=== PATIENT | female | born 1950 | race Caucasian/White ===

== ENCOUNTER 2016-07-28 12:01 | Outpatient (CLI) | payer BC ==
[~2016-07-28] VITALS: Ht 154.9 cm; Wt 47.6 kg
[~2016-07-28 12:01] MED LIST: ASP81TEC PO; AZTH250C PO; CA C1TAB75 PO; ESTR42.52 VG; FLC150T PO; HCTZ12.5T PO; HYDR-757 PO; HYDR25TA4 PO; IBUP-30 PO; LEVO750T6 PO; LOSA25TA5 PO; ONDA-42 SL; OXYM30SP NS; PS30T PO
--- OUTSIDE RECORDS SUMMARY | 2016-07-28 12:04 | XMS REPORT | Continuity of Care Document ---
Author Author [facility] Organization [facility] Address Unknown Phone Unavailable Care Team Providers Care Environmental Change Analyst Name Role Phone KERRY POOL MD PCP Insurance Providers Payer Name Policy Number Subscriber Name Relationship [facility] [id number] Jenni Pedersen 18 Self / Same As Patient Advance Directives Directive Response Recorded Date/Time Advance Directives No 03/29/14 5:54pm Health Care Power of Station Mechanic Helper No 03/29/14 5:54pm Organ Donor Yes 03/29/14 5:54pm Resuscitation Status Full Code 03/29/14 5:54pm Resuscitation Status Full Code 03/29/14 5:57pm Chief Complaint and Reason for Visit Chief Complaint R PNEUMONIA,SEPSIS,FAILED OP ANTIBIOTICS Reason for Visit Pneumonia Problems Medical Problems Problem Onset Date Status Pneumonia 04/02/2014 Active Medications Medication Dose Route Sig Days/Qty Instructions Order Date Discontinued Date Status Aspirin 81 Mg PO DAILY 02/23/13 03/29/14 Discontinued Estradiol 1 Gm VG 3 TIMES WEEKLY 02/23/13 Active Losartan Potassium 25 Mg PO DAILY 02/23/13 Active Hydrochlorothiazide 12.5 Mg PO DAILY 02/23/13 03/30/14 Discontinued Azithromycin PO DIRECTED TAKE 2 TABLETS DAY 1 THEN TAKE 1 TABLET DAILY FOR 4 DAYS 03/29/14 04/02/14 Discontinued Fluconazole 150 Mg PO DIRECTED 2 Qty 03/30/14 03/30/14 Discontinued Hydrochlorothiazide 6.25 Mg PO DAILY TAKES 1/4 (25MG) TABLET DAILY 12/06 Active Pseudoephedrine HCl 60 Mg PO EVERY 4-6 HOURS PRN CONGESTION 03/30/14 04/02/14 Discontinued Ibuprofen 200 Mg PO THREE TIMES A DAY PRN PAIN 03/30/14 Active Ca Carbonate/Vitamin D3/Vit K 1 Tab PO DAILY 03/30/14 Active Oxymetazoline Hcl (Afrin Nasal [place]) 2-3 [place] NS PER PACKAGE INSTR PRN CONGESTION 03/30/14 Active Levofloxacin 750 Mg PO DAILY 6 Days 04/02/14 Active Social History Social History Problem Response Recorded Date/Time Alcohol Use Denies Use 03/29/2014 5:56pm Recreational Drug Use No 03/29/2014 5:56pm Recent Foreign Travel No 03/29/2014 5:56pm Recent Infectious Disease Exposure No 03/29/2014 5:56pm Hospitalization with Isolation Denies 04/02/2014 11:37am Smoking Status Never a Smoker 03/29/2014 6:02pm Query Response Start Date Stop Date Smoking Status Never a Smoker Hospital Discharge Instructions No hospital discharge instructions. Plan of Care Discharge Date 04/02/14 10:50am Disposition 30 STILL A PATIENT Instructions/Education Provided Bacterial Pneumonia (DC) Prescriptions See Medications Section Follow-up Orders Chest 1 View, Ap/Pa Referrals KERRY POOL MD (Unspecified) 04/16/14 Address: [address] [place] [address], [address] [place] [phone] Care Plan and Goals Repeat CXR in 2 weeks then f/u with Dr Pool after CXR. May use OTC Mucinex (without D) if needed for congestion. Functional Status Query Response Date Recorded Patient Orientation Person Place Time Situation April 02, 2014 11:37am Comprehension Ability Understands Concepts April 02, 2014 7:59am Allergies, Adverse Reactions, Alerts Allergen Type Severity Reaction Status Last Updated No Known Drug Allergies Active 03/29/14 Immunizations Name Given Type Date of Pneumonia Vaccine 03/29/08 Historical Date of Influenza Vaccine 03/27/12 Historical Hepatitis A No Historical Hepatitis B No Historical Tetanus Booster (TDap) More than 5yrs Historical Vital Signs Acute Vital Signs Vital Response Date/Time Temperature (Fahrenheit) 97.1 degrees F (97.6 - 99.5) Temperature (Calculated Celsius) 36.41364 degrees C (36.4 - 37.5) Temperature Source Tympanic Pulse Rate (adult) 82 bpm (60 - 90) Respiratory Rate 20 bpm (12 - 24) O2 Sat by Pulse Oximetry 100 % (88 - 100) Blood Pressure 133/76 mm Hg Pain Pain Intensity 0 Height (Feet) 5 feet Height (Inches) 1.00 inches Height (Calculated Centimeters) 154.436940 cm Weight (Pounds) 112 pounds Weight (Calculated Grams) 21814.346 gm Weight (Calculated Kilograms) 50.118907 kilograms Calculated BMI 21.16 Results No known relevant diagnostic tests, laboratory data and/or discharge summary. Procedures Procedure Status Date Provider(s) Tracing only of electrocardiogram completed 04/01/14 ZORAIDA MELTON MD Color Doppler echocardiography completed 04/01/14 ZORAIDA MELTON MD Encounters Encounter Location Date/Time Discharged Inpatient [facility] 03/29/14 4:39pm Recent Diagnosis Pneumonia
[2016-07-28] MEDS ORDERED: ASPI-586 PO (12:14)
[2016-07-28] MEDS ORDERED: LEVO50TA6 PO (12:14)
[2016-07-29] MEDS ORDERED: HYDR-3730 PO (14:13)
== END 2016-07-28 12:22 ==
LOC: PREOP 12:01
PROVIDERS: ATTEND Orthopaedic Surgery
DX: Z01.818 Encounter for other preprocedural examination (principal); S52.122A Displaced fracture of head of left radius, initial encounter for closed fracture; V00.138A Other skateboard accident, initial encounter; Y92.017 Garden or yard in single-family (private) house as the place of occurrence of the external cause; Y99.8 Other external cause status

== ENCOUNTER 2016-07-29 08:01 | Day surgery (SDC) | payer BC ==
[~2016-07-29] VITALS: Ht 154.9 cm; Wt 47.6 kg
[~2016-07-29 08:01] MED LIST changes: +ASPI-586 PO; +LEVO50TA6 PO
--- OUTSIDE RECORDS SUMMARY | 2016-07-29 08:06 | XMS REPORT | Continuity of Care Document ---
Author Author [facility] Organization [facility] Address Unknown Phone Unavailable Care Team Providers Care Account Support Manager Name Role Phone CHINYERE WILLIAMSON DO PCP Insurance Providers Payer Name Policy Number Subscriber Name Relationship [facility] [id number] Jenni Pedersen 18 Self / Same As Patient Advance Directives Directive Response Recorded Date/Time Advance Directives No 07/28/16 12:10pm Health Care Power of Tobacco Blender No 07/28/16 12:10pm Organ Donor Yes 07/28/16 12:10pm Resuscitation Status Full Code 07/28/16 12:10pm Problems Active Problems Medical Problem Onset Date Status Concussion without loss of consciousness Unknown Acute Concussion without loss of consciousness Unknown Acute Contusion of face Unknown Acute Failure of outpatient treatment Unknown Acute Fall on same level from slipping, tripping or stumbling Unknown Acute Fever Unknown Acute Fracture of radial head, left, closed Unknown Acute Hyponatremia Unknown Acute Pneumonia 04/02/2014 Acute Pneumonia Unknown Acute Sepsis Unknown Acute Medications Current Home Medications Medication Dose Units Route Directions Days/Qty Instructions Start Date Estradiol 42.5 Gm 1 Gm Vaginal 2 Times Per Week 02/23/13 Losartan Potassium 25 Mg 25 Mg Oral Daily 02/23/13 Hydrochlorothiazide 25 Mg 6.25 Mg Oral Daily TAKES 1/4 (25MG) TABLET DAILY 03/30/14 Ibuprofen 200 Mg 200 Mg Oral Three Times A Day as needed for Pain Ca Carbonate/Vitamin D3/Vit K 1 Each 1 Tab Oral Daily 03/30/14 Ondansetron Hcl 4 Mg 4 Mg Sublingual Every 4HRS as needed for Nausea/ Vomiting 10 FOR NAUSEA AND VOMITING 05/05/14 Hydrocodone/Acetaminophen 1 Each 1 Each Oral Every 4HRS as needed for Pain 20 07/25/16 Aspirin 81 Mg 81 Mg Oral Daily 07/28/16 Levothyroxine Sodium 50 Mcg 50 Mcg Oral Daily 07/28/16 Past Home Medications Medication Directions Ordered Status Aspirin 81 Mg Tabec, 81 Mg Oral Daily 02/23/13 Discontinued Hydrochlorothiazide 12.5 Mg Cap, 12.5 Mg Oral Daily 02/23/13 Discontinued Azithromycin 250 Mg Tablet, Oral As Directed 03/29/14 Discontinued Fluconazole 150 Mg Tablet, 150 Mg Oral As Directed 03/30/14 Discontinued Pseudoephedrine Hcl 30 Mg Tab, 60 Mg Oral Every 4-6 Hours as needed for Congestion 03/30/14 Discontinued Oxymetazoline Hcl (Afrin Nasal [place]) 15 Ml [place], 2-3 [place] Nasal Per Package Instr as needed for Congestion 03/30/14 Discontinued Social History Social History Problem Response Recorded Date/Time Alcohol Use Denies Use 05/05/2014 10:07am Recreational Drug Use No 05/05/2014 10:07am Recent Foreign Travel No 05/05/2014 10:07am Recent Infectious Disease Exposure No 05/05/2014 10:07am Hospitalization with Isolation Denies 05/05/2014 10:07am Smoking Status Never a Smoker 07/28/2016 12:10pm Recent Hopitalizations No 07/28/2016 12:10pm Hospitalization with Isolation Denies 05/05/2014 10:07am Query Response Start Date Stop Date Smoking Status Never a Smoker Hospital Discharge Instructions No hospital discharge instructions. Plan of Care Discharge Date 07/28/16 12:22pm Prescriptions See Medication Section Functional Status No functional status results. Allergies, Adverse Reactions, Alerts No known allergies. Immunizations No immunization records. Vital Signs Acute Vital Signs Vital Response Date/Time Temperature (Fahrenheit) 96.7 degrees F (97.6 - 99.5) 07/25/2016 6:26pm Temperature (Calculated Celsius) 35.38249 degrees C (36.4 - 37.5) 07/25/2016 6:26pm Temperature Source Tympanic 07/25/2016 6:26pm Pulse Rate (adult) 81 bpm (60 - 90) 07/25/2016 6:26pm Respiratory Rate 16 bpm (12 - 24) 07/25/2016 6:26pm O2 Sat by Pulse Oximetry 99 % (88 - 100) 07/25/2016 6:26pm Blood Pressure 142/81 mm Hg 07/25/2016 6:26pm Blood Pressure Mean 101 mm Hg 07/25/2016 4:59pm Pain Numeric Pain Scale 3 07/25/2016 6:26pm Height (Feet) 5 feet 07/28/2016 12:07pm Height (Inches) 1.00 inches 07/28/2016 12:07pm Height (Calculated Centimeters) 154.521962 cm 07/28/2016 12:07pm Weight (Pounds) 105 pounds 07/28/2016 12:07pm Weight (Ounces) 0.0 oz 07/28/2016 12:07pm Weight (Calculated Grams) 39970.20 gm 07/28/2016 12:07pm Weight (Calculated Kilograms) 47.168500 kilograms 07/28/2016 12:07pm Calculated BMI 19.8 07/28/2016 12:07pm Capillary Refill Capillary Refill Less Than 3 Seconds 07/25/2016 4:59pm Results No known relevant diagnostic tests, laboratory data and/or discharge summary. Procedures No known history of procedures. Encounters Encounter Location Arrival/Admit Date Discharge/Depart Date Attending Provider Departed Clinic [facility] 07/28/16 12:01pm 07/28/16 12: 22pm ANGE MCKEON MD Departed Emergency Room [facility] 07/25/16 4:29pm 07/25 6:27pm ALICIA WALTERS APRN
--- OUTSIDE RECORDS SUMMARY | 2016-07-29 08:06 | XMS REPORT | Continuity of Care Document ---
Author Author [facility] Organization [facility] Address Unknown Phone Unavailable Care Team Providers Care Staff Development Educator Name Role Phone CHINYERE WILLIAMSON DO PCP Insurance Providers Payer Name Policy Number Subscriber Name Relationship [facility] [id number] Jenni Pedersen 19 Self / Same As Patient Advance Directives Directive Response Recorded Date/Time Advance Directives No 07/28/16 12:10pm Health Care Power of Insulation Helper No 07/28/16 12:10pm Organ Donor Yes 07/28/16 [...] Congestion 03/30/14 Discontinued Oxymetazoline Hcl (Afrin Nasal [place]) 15 Ml [place], 2-3 [place] Nasal Per Package Instr as needed for [...] - 99.5) 07/25/2016 6:26pm Temperature (Calculated Celsius) 35.13895 degrees C (36.4 - 37.5) 07/25/2016 6:26pm [...] 1.00 inches 07/28/2016 12:07pm Height (Calculated Centimeters) 154.183531 cm 07/28/2016 12:07pm Weight (Pounds) 105 pounds 07/28/2016 12:07pm Weight (Ounces) 0.0 oz 07/28/2016 12:07pm Weight (Calculated Grams) 08688.20 gm 07/28/2016 12:07pm Weight (Calculated Kilograms) 47.037751 kilograms 07/28/2016 12:07pm Calculated BMI 19.8 07/28/2016 12:07pm Capillary Refill Capillary Refill Less Than 3 Seconds 07/25/2016 4:59pm Results No known relevant diagnostic tests, laboratory data and/or discharge summary. Procedures No known history of procedures. Encounters Encounter Location Arrival/Admit Date Discharge/Depart Date Attending Provider Departed Clinic [facility] 07/28/16 12:01pm 07/28/16 12: 22pm ANGE MCKEON MD Departed Emergency Room [facility] 07/25/16 4:29pm 07/25 6:27pm ALICIA WALTERS APRN
[2016-07-29 08:08] VITALS: BP 119/73
[2016-07-29] MEDS ORDERED: LIDOCAINE 1% 10 MG/ML 0.2 ML SYR (FOR IV START) ONE (08:08)
[2016-07-29] MEDS ORDERED: NORMAL SALINE (BAXTER MINI) 50 ML IV ONE (08:09)
[2016-07-29] MEDS ORDERED: ceFAZolin 1,000 MG (ANCEF) VIAL ONE (08:09)
[2016-07-29] MEDS ORDERED: FAMOTIDINE 20MG/2ML IV (PEPCID) ONE (08:38)
[2016-07-29] MEDS ORDERED: SCOPOLAMINE 1.5 MG (TRANSDERM-SCOP) PATCH ONE (08:38)
[2016-07-29] MEDS ORDERED: ONDANSETRON 4 MG/2 ML (SDV) Z0FRAN ONE ×2 (08:38→09:14)
--- NOTE | 2016-07-29 08:42 | HISTORY AND PHYSICAL ---
DICTATING PHYSICIAN: Dr. Abreu DATE OF ADMISSION: 07/29/2016 Outpatient surgery admission for open reduction and internal fixation of her left radial head. HISTORY: The patient is a 66-year-old, [id number] female who fell while skateboarding Wednesday evening. She is found to have a closed displaced left radial head fracture. She denies wrist pain. She denies paresthesias. She reports no prior history of elbow problems. She reports that she was unable to rotate her forearm following the injury. Due to the displaced nature of the fracture it was recommended that the patient undergo operative fixation. REVIEW OF SYSTEMS: No chest pain, no shortness of breath. No dysuria. PAST MEDICAL HISTORY: Significant for hypertension and hypothyroidism. PAST SURGICAL HISTORY: 1. Hysterectomy. 2. Lipoma excision. 3. . SOCIAL HISTORY: The patient denies alcohol, tobacco use. PRIMARY CARE PROVIDER: Dr. Conroy. FAMILY HISTORY: Noncontributory. MEDICATIONS: 1. Aspirin. 2. Hydrochlorothiazide. 3. Cozaar. 4. Levothyroxine. 5. Estrace. ALLERGIES: NICKEL PHYSICAL EXAMINATION: The patient is well-developed, well-nourished, in no acute distress. HEENT: Normocephalic, atraumatic. Pupils are equal, and reactive to light, oropharynx is clear. NECK: Supple with no lymphadenopathy. LUNGS: Clear to auscultation bilaterally. HEART: Regular rate and rhythm. ABDOMEN: Soft, nontender, nondistended. EXTREMITY EXAM: The left elbow demonstrates mild edema. She is tender over her fracture site. She has pain with attempted supination and pronation of the forearm. Sensation is intact distally in the radial, ulnar and median distribution. She has intact MCP extension, finger abduction, thumb IP flexion and extension. She is nontender over her distal radial, ulnar joint. IMPRESSION: Displaced left radial head fracture. PLAN: Open reduction and internal fixation of the left radial head. The risks, benefits, options, ramifications and recovery were discussed at length with the patient and her . They understand and wish to proceed. Job ID: [id number] Dictated Date: 07/28/2016 10:40:00 Financial Operations Clerk Date: 07/28/2016 10:54:52/key
[2016-07-29] MEDS ORDERED: ceFAZolin 1 GM/NS 50 ML IVPB IV ONE ×2 (08:45)
--- NOTE | 2016-07-29 08:54 | Progress Note-Pre Operative ---
Pre-Operative Progress Note H&P Reviewed The H&P was reviewed, patient examined and no changes noted. Date H&P Reviewed: Jul 29, 2016 Time H&P Reviewed: 08:53 Pre-Operative Diagnosis: closed, displaced left radial head fracture ANGE MCKEON MD Jul 29, 2016 08:54
--- NOTE | 2016-07-29 08:55 | Progress Note-Post Operative ---
Post-Operative Progess Note Transition Teacher Fuentes Bailey Pre-Operative Diagnosis closed, displaced left radial head fracture Post-Operative Diagnosis closed, displaced left radial head fracture Post-Op Procedure Note Date of Procedure: Jul 29, 2016 Name of Procedure: left radial head fracture fragment excision Anesthesia Type GETA Estimated blood loss (mL): minimal Packing: none Specimen(s) collected none ANGE MCKEON MD Jul 29, 2016 08:55
[2016-07-29] MEDS: LACTATED RINGERS 1,000 ML IV SCH ×2 (09:00→10:20)
[2016-07-29] MEDS ORDERED: ROCURONIUM 50 MG/5 ML (ZEMURON) VIAL IV ONE (09:14)
[2016-07-29] MEDS ORDERED: MIDAZOLAM 2 MG/2 ML (VERSED) VIAL ONE (09:14)
[2016-07-29] MEDS ORDERED: LIDOCAINE PF 2% 10 ML (XYLOCAINE) AMP ONE (09:14)
[2016-07-29] MEDS ORDERED: LACTATED RINGERS 1,000 ML IV ONE ×2 (09:14→11:10)
[2016-07-29] MEDS ORDERED: proPOfol 200 MG/20 ML (DIPRIVAN) VIAL IV ONE (09:14)
[2016-07-29] MEDS ORDERED: fentaNYL INJECTION 100 MCG/2 ML AMP ONE (09:14)
[2016-07-29] MEDS ORDERED: LIDOCAINE JELLY 2% (XYLOCAINE) 5 ML TUBE ONE (09:14)
[2016-07-29] MEDS ORDERED: HYDROcodone/APAP 7.5 MG/325 MG (LORTAB, LORCET PLUS) TABLET PO PRN (09:15)
[2016-07-29] MEDS ORDERED: morphine INJ 10 MG/ML 1ML (SYR OR VIAL) ONE (10:06)
[2016-07-29] MEDS ORDERED: SEVOFLURANE (ULTANE) 15 ML INHAL SOLN ONE ×8 (10:13→11:34)
[2016-07-29] MEDS ORDERED: BUPIVACAINE 0.25% 30 ML (SENSORCAINE) VIAL ONE (11:20)
[2016-07-29] MEDS ORDERED: ONDANSETRON 4 MG/2 ML (SDV) Z0FRAN IVP PRN (12:00)
[2016-07-29] MEDS ORDERED: MEPERIDINE (DEMEROL) INJ 50 MG/ML IVP PRN (12:00)
[2016-07-29] MEDS: morphine INJ 10 MG/ML 1ML (SYR OR VIAL) IVP PRN ×3 (12:11→12:26)
[2016-07-29 12:50] VITALS: BP 126/75
[2016-07-29 13:25] VITALS: BP 108/70
--- NOTE | 2016-07-29 14:05 | OPERATIVE REPORT ---
PROCEDURE PHYSICIAN: ANGE MCKEON DATE OF PROCEDURE: 07/29/2016 PREOPERATIVE DIAGNOSIS: Displaced radial head fracture. POSTOPERATIVE DIAGNOSIS: Displaced radial head fracture. PROCEDURE: Excision of left radial head fracture fragment. SURGEON: Brady TECHNICAL SPEC: Fuentes Bailey. ANESTHESIA: General endotracheal by Fuentes Baires CRNA. TOURNIQUET TIME: 71 minutes at 250 mmHg. ESTIMATED BLOOD LOSS: Minimal. DRAINS: None. COMPLICATIONS: None. POSTOPERATIVE PLAN: Immobilization for 2 weeks. DISPOSITION: The patient was transported to the recovery room, awake, in stable condition. STATEMENT OF MEDICAL NECESSITY: The patient is a 66-year-old, [id number] female who sustained a left closed displaced radial head fracture. There was no significant displacement of the fracture fragment and patient reported difficulty with supination and pronation. Because of this it was recommended the patient undergo operative fixation. PROCEDURE: After risks and benefits of the procedure were discussed and questions were answered, informed consent was signed and placed on the chart. The operative site was confirmed in the preoperative holding area and initialed by the surgeon. The patient was then transported to the operating room and after adequate levels of general endotracheal anesthetic were obtained, a timeout was called confirming the operative site. The left upper extremity was then prepped and draped in the usual sterile fashion. With the arm elevated, the tourniquet was inflated to 250 mmHg. A standard posterior lateral approach was utilized. The plane between the anconeus the extensor carpi ulnaris was developed exposing the joint capsule. The capsule had been disrupted from the fracture superiorly. This was then incised longitudinally staying anterior to the lateral collateral ligament complex. The joint was opened and a fracture was found to be on the ulnar aspect of the radial head. This involved less than 10% of the articular surface. In order to expose this, full supination had to be obtained. The fracture fragment was removed anteriorly and a portion of this was resected. The elbow was taken through a range of motion and found to be stable, however, there was found to be a nondisplaced radial neck fracture. The proximal radius moved as a unit following the completion of the procedure and the radial head was felt to be in anatomic alignment. A portion of the fragment was left in the anterior soft tissues as this could not be access from the posterolateral incision. Because this was extra-articular it was felt that this would cause no problems. In addition, the radial neck was not fixed as this was nondisplaced and stable. The patient will be counseled that if this goes on to nonunion she could potentially require further operative intervention. Her was counseled to this postoperatively. The joint was carefully inspected. No loose bodies were noted. The joint was copiously irrigated. The exposure stayed proximal to the annular ligament and all retractors were placed subperiosteally. No significant retraction was placed anteriorly in the area of the posterior interosseous nerve and no dissection was carried out in this area and that is one of the reasons the fracture fragment was left anteriorly. The tourniquet was deflated for total tourniquet time of 71 minutes. Pressure was used for hemostasis. The capsular incision was closed with 0 Vicryl in gwruxu-qv-lalfl interrupted fashion as was the anconeus carpi ulnaris split. The wound was further irrigated. 2-0 Vicryl used to reapproximate subcutaneous tissue and the skin was closed with 4-0 nylon running, alternating horizontal mattress fashion. The area was infiltrated with plain Marcaine. A soft dressing and posterior splint were applied. The patient was transported to recovery room, awake, in stable condition. Job ID: [id number] Dictated Date: 07/29/2016 11:44:00 Plaster Block Layer Date: 07/29/2016 13:48:07 / key
[2016-07-29] MEDS ORDERED: HYDR-3730 PO (14:13)
[2016-07-29 14:15] VITALS: BP 109/68
[2016-07-29 15:07] VITALS: BP 109/68
--- NOTE | 2016-07-29 15:15 | Diagnostic Imaging Report ---
Intraoperative radiographs of the left elbow. INDICATION: Radial head fracture. Fluoroscopy time provided is 19 seconds. IMPRESSION: There is partial reduction seen of the elbow fracture of the radial head with displaced fragment ventrally. Correlate with operative findings and surgical details. Dictated by: Dictated on workstation # [id number]
== END 2016-07-29 15:07 | disposition home or self-care (01) ==
LOC: SDC 08:01
PROVIDERS: ATTEND Orthopaedic Surgery
DX: S52.122A Displaced fracture of head of left radius, initial encounter for closed fracture (principal); V00.138A Other skateboard accident, initial encounter; Y92.017 Garden or yard in single-family (private) house as the place of occurrence of the external cause; Y99.8 Other external cause status; I10 Essential (primary) hypertension; E03.9 Hypothyroidism, unspecified; Z11.2 Encounter for screening for other bacterial diseases
CPT/HCPCS: 87081

== ENCOUNTER 2016-10-15 13:03 | Outpatient (RCR) | payer BC ==
--- OUTSIDE RECORDS SUMMARY | 2016-09-03 14:25 | XMS REPORT | Continuity of Care Document ---
Author Author [facility] Organization [facility] Address Unknown Phone Unavailable Care Team Providers Care Customs Broker Name Role Phone CHINYERE WILLIAMSON DO PCP Insurance Providers Payer Name Policy Number Subscriber Name Relationship [facility] [id number] Jenni Pedersen 19 Self / Same As Patient Advance Directives Directive Response Recorded Date/Time Advance Directives No 07/28/16 12:10pm Health Care Power of Customer Service Consultant No 07/28/16 12:10pm Organ Donor Yes 07/28/16 [...] Congestion 03/30/14 Discontinued Oxymetazoline Hcl (Afrin Nasal [place]) 15 Ml [place], 2-3 [place] Nasal Per Package Instr as needed for [...] - 99.5) 07/25/2016 6:26pm Temperature (Calculated Celsius) 35.03214 degrees C (36.4 - 37.5) 07/25/2016 6:26pm [...] 1.00 inches 07/28/2016 12:07pm Height (Calculated Centimeters) 154.616789 cm 07/28/2016 12:07pm Weight (Pounds) 105 pounds 07/28/2016 12:07pm Weight (Ounces) 0.0 oz 07/28/2016 12:07pm Weight (Calculated Grams) 67797.20 gm 07/28/2016 12:07pm Weight (Calculated Kilograms) 47.677904 kilograms 07/28/2016 12:07pm Calculated BMI 19.8 07/28/2016 12:07pm Capillary Refill Capillary Refill Less Than 3 Seconds 07/25/2016 4:59pm Results No known relevant diagnostic tests, laboratory data and/or discharge summary. Procedures No known history of procedures. Encounters Encounter Location Arrival/Admit Date Discharge/Depart Date Attending Provider Departed Clinic [facility] 07/28/16 12:01pm 07/28/16 12: 22pm ANGE MCKEON MD Departed Emergency Room [facility] 07/25/16 4:29pm 07/25 6:27pm ALICIA WALTERS APRN
[~2016-10-15 13:03] MED LIST changes: +HYDR-3730 PO
== END 2016-10-16 17:53 | disposition home or self-care (01) ==
PROVIDERS: ATTEND Orthopaedic Surgery
DX: S52.122D Displaced fracture of head of left radius, subsequent encounter for closed fracture with routine healing (principal)

== ENCOUNTER → 2017-05-19 | Outpatient (CLI) | payer BC ==
--- NOTE | 2017-05-19 19:39 | Diagnostic Imaging Report ---
Bilateral screening mammogram 2D views with tomosynthesis The current study was also evaluated with a Computer Aided Detection (CAD) system. INDICATION: Screening. No current complaints stated on the questionnaire. COMPARISON: 04/20/2016. FINDINGS: The breasts are composed of heterogeneously dense parenchyma which may decrease mammographic sensitivity. There is no mass, architectural distortion, or suspicious cluster of calcifications seen. Allowing for technique and positional differences, no suspicious change is seen. IMPRESSION: Dense breasts with no definite change. ACR BI-RADS Category 2: Benign findings. Result letter will be mailed to the patient. Note: At least 10% of breast cancer is not imaged by mammography. Dictated by: Dictated on workstation # [id number]
== END ==
LOC: RAD 15:29
PROVIDERS: ATTEND Nurse Practitioner Family
DX: Z12.31 Encounter for screening mammogram for malignant neoplasm of breast (principal)
CPT/HCPCS: 77067

== ENCOUNTER → 2018-05-27 | Outpatient (CLI) | payer BC ==
[~2018-05-27] MED LIST changes: +HYDR-4226 PO; -HYDR-757 PO
--- NOTE | 2018-05-27 17:30 | Diagnostic Imaging Report ---
INDICATION: Routine screening. COMPARISON: Comparison is made with prior mammograms from 05/19/2017 and 04/20/2016. TECHNIQUE: 2D and 3D bilateral screening mammography was performed with computer-aided detection (CAD) system. FINDINGS: Both breasts are heterogeneously dense, limiting the sensitivity of mammography. The parenchymal pattern is stable. No mass or malignant appearing microcalcifications are seen. The axillae are unremarkable. IMPRESSION: No mammographic features suspicious for malignancy are identified. ACR BI-RADS Category 1: Negative. Result letter will be mailed to the patient. Note: At least 10% of breast cancer is not imaged by mammography. Dictated by: Dictated on workstation # [id number]
== END ==
LOC: RAD 11:15
PROVIDERS: ATTEND Nurse Practitioner Family
DX: Z12.31 Encounter for screening mammogram for malignant neoplasm of breast (principal)
CPT/HCPCS: 77067

== ENCOUNTER → 2019-06-06 | Outpatient (CLI) | payer BC ==
--- NOTE | 2019-06-06 12:42 | Diagnostic Imaging Report ---
INDICATION: Routine screening. COMPARISON: 05/27/2018 and 05/19/2017. TECHNIQUE: 2D and 3D bilateral screening mammography was performed with CAD. FINDINGS: Both breasts remain heterogeneously dense, limiting the sensitivity of mammography. The parenchymal pattern is stable. No mass or malignant appearing microcalcifications are seen. The axillae are unremarkable. IMPRESSION: No mammographic features suspicious for malignancy are identified. ACR BI-RADS Category 1: Negative. Result letter will be mailed to the patient. Note: At least 10% of breast cancer is not imaged by mammography. Dictated by: Dictated on workstation # [id number]
== END ==
LOC: RAD 08:42
PROVIDERS: ATTEND Nurse Practitioner Family
DX: Z12.31 Encounter for screening mammogram for malignant neoplasm of breast (principal)
CPT/HCPCS: 77067

== ENCOUNTER → 2019-07-05 | Outpatient (CLI) | payer BC ==
[~2019-07-05] VITALS: Ht 152 cm; Wt 574.0 kg
[~2019-07-05] MED LIST changes: +CATHETER FLUSH 10 ML SYR IV PRN
[2019-07-05 08:08] VITALS: BP 162/93
--- NOTE | 2019-07-05 23:09 | STRESS TEST ---
DATE OF SERVICE: 07/05/2019 NUCLEAR MYOVIEW REPORT REFERRING PHYSICIAN: Dr. Conroy. In summary, the patient was injected with 10.87 mCi of technetium-99 Myoview and the resting images were obtained. With peak stress level, a 33.0 mCi of technetium-99 Myoview were injected and the stress images were acquired, the resting and stress images were reviewed and compared in the short axis, horizontal long axis, and vertical long axis views. Review of the images showed good radiotracer uptake with no significant ischemia or infarction. SSS is 2, SDS 2, TID value 0.92. On the gated images, the left ventricle appeared to be normal size with normal contractility. Calculated ejection fraction 69%. CONCLUSION: 1. No ischemia or infarction on SPECT images. 2. Normal left ventricular size with normal contractility. Calculated ejection fraction 69%. Job ID: [id number] DocumentID: [id number] Dictated Date: 07/05/2019 17:01:01 Guidance Consultant Date: 07/05/2019 23:09:10 Dictated By: MING GUERRA MD
== END ==
LOC: CARD 06:33
PROVIDERS: ATTEND Nurse Practitioner Family
DX: R07.9 Chest pain, unspecified (principal)
CPT/HCPCS: 78452; 93017

== ENCOUNTER → 2020-02-26 | Outpatient (CLI) | payer BC ==
[~2020-02-26] MED LIST changes: -CATHETER FLUSH 10 ML SYR IV PRN
--- NOTE | 2020-02-26 16:57 | Diagnostic Imaging Report ---
PROCEDURE: US Thyroid. TECHNIQUE: Multiple Real-time grayscale images were obtained of the thyroid in various projections. INDICATION: Thyroid nodule. COMPARISON: 03/05/2016. FINDINGS: The right lobe of the thyroid gland measures 5.5 x 1.7 x 2.1 cm. It demonstrates a diffusely heterogeneous echotexture. A 0.8 x 0.7 x 0.5 cm ovoid hyperechoic nodule is noted within the mid right thyroid lobe, not significantly changed since 2016. No new right thyroid nodule is present. The left lobe of the thyroid gland measures 5.8 x 2.0 x 2.2 cm. The left lobe of the thyroid gland demonstrates a diffusely heterogeneous echotexture without discrete nodule. The isthmus is heterogeneous although otherwise unremarkable. IMPRESSION: Stable subcentimeter hyperechoic nodule within the right thyroid lobe. Given stability since 2016, this is benign. Mildly enlarged although diffusely heterogeneous thyroid gland is again identified. Dictated by: Dictated on workstation # [id number]
== END ==
LOC: RAD 15:00
PROVIDERS: ATTEND Nurse Practitioner Family
DX: E04.1 Nontoxic single thyroid nodule (principal)
CPT/HCPCS: 76536

== ENCOUNTER → 2020-06-10 | Outpatient (CLI) | payer BC ==
--- NOTE | 2020-06-10 15:44 | Diagnostic Imaging Report ---
INDICATION: Routine screening. COMPARISON: 06/06/2019 and 05/27/2018. TECHNIQUE: Screening digital mammography was performed bilaterally with a Computer Aided Detection (CAD) system. FINDINGS: Both breasts are heterogeneously dense, limiting the sensitivity of mammography. There is a slightly nodular density in the medial and inferior right breast which appears more prominent on today's study. The left breast is unremarkable. No malignant appearing microcalcifications are seen. The axillae are unremarkable. IMPRESSION: Density in the lower inner right breast. Additional views are recommended for further evaluation. ACR BI-RADS Category 0: Incomplete. (Needs additional imaging evaluation). Result letter will be mailed to the patient. Note: At least 10% of breast cancer is not imaged by mammography. Dictated by: Dictated on workstation # [id number]
== END ==
LOC: RAD 11:30
PROVIDERS: ATTEND Nurse Practitioner Family
DX: Z12.31 Encounter for screening mammogram for malignant neoplasm of breast (principal); R91.8 Other nonspecific abnormal finding of lung field
CPT/HCPCS: 77063; 77067

== ENCOUNTER → 2020-06-19 | Outpatient (CLI) | payer BC ==
--- NOTE | 2020-06-19 08:45 | Diagnostic Imaging Report ---
Indication: Abnormal screening mammogram. Comparison made with prior examination from 06/10/2020 Findings: Spot compression views and true lateral views of the right breast were obtained. The previously described density appears to be superimposed fibroglandular tissue. There is no discrete mass, spiculated lesion or suspicious calcification identified. IMPRESSION: Category 2, benign. ACR BI-RADS Category 2: Benign findings. Result letter will be mailed to the patient. Note: At least 10% of breast cancer is not imaged by mammography. Dictated by: Dictated on workstation # [id number]
== END ==
LOC: RAD 07:45
PROVIDERS: ATTEND Nurse Practitioner Family
DX: R92.8 Other abnormal and inconclusive findings on diagnostic imaging of breast (principal)
CPT/HCPCS: 77065; G0279

== ENCOUNTER → 2021-06-27 | Outpatient (CLI) | payer BC ==
--- NOTE | 2021-06-27 12:15 | Diagnostic Imaging Report ---
INDICATION: Routine screening. COMPARISON is made with prior mammograms from 06/10/2020 and 06/06/2019. 2-D and 3-D bilateral screening mammography was performed with CAD. Both breasts are heterogeneously dense, limiting the sensitivity of mammography. The parenchymal pattern is stable. No mass or malignant-appearing microcalcifications are seen. Axillae are unremarkable. IMPRESSION: BI-RADS Category 1 No mammographic features suspicious for malignancy are identified. ACR BI-RADS Category 1: Negative. Result letter will be mailed to the patient. Note: At least 10% of breast cancer is not imaged by mammography. Dictated by: Dictated on workstation # [id number]
== END ==
LOC: RAD 10:15
PROVIDERS: ATTEND Nurse Practitioner Family
DX: Z12.31 Encounter for screening mammogram for malignant neoplasm of breast (principal)
CPT/HCPCS: 77063; 77067

== ENCOUNTER 2022-06-05 05:30 | Outpatient (CLI) | payer MEDICARE ==
[~2022-06-05] VITALS: Ht 152.4 cm; Wt 51.5 kg
[2022-06-09] MEDS ORDERED: FISH OIL (11:11)
[2022-06-09] MEDS ORDERED: LEVO75CA5 PO (11:11)
[2022-06-09] MEDS ORDERED: VITAMIN D3 (11:11)
[2022-06-09] MEDS ORDERED: LEVO75TA6 PO (11:11)
[2022-06-09] MEDS ORDERED: GLUCOSAMINE (11:11)
[2022-06-09] MEDS ORDERED: ROSU10TA28 PO (11:11)
[2022-06-09] MEDS ORDERED: VITAMIN B12 (11:11)
== END 2022-06-09 11:50 | disposition home or self-care (01) ==
LOC: PREOP 05:30
PROVIDERS: ATTEND Obstetrics & Gynecology
DX: Z01.818 Encounter for other preprocedural examination (principal)

== ENCOUNTER 2022-06-12 06:26 | Day surgery (SDC) | payer MEDICARE ==
[~2022-06-12] VITALS: Ht 152 cm; Wt 51.5 kg
[2022-06-12] VITALS (16 sets, daily range): BP systolic 96–117; BP diastolic 52–65
[~2022-06-12 06:26] MED LIST changes: +FISH OIL; +GLUCOSAMINE; +LEVO75CA5 PO; +LEVO75TA6 PO; +ROSU10TA28 PO; +VITAMIN B12; +VITAMIN D3
--- NOTE | 2022-06-12 07:04 | Progress Note-Pre Operative ---
Pre-Operative Progress Note Date of Available H&P: Jun 12, 2022 Date H&P Reviewed: Jun 12, 2022 Time H&P Reviewed: 07:04 History & Physical: H&P Reviewed, No changes noted Pre-Operative Diagnosis: Vaginal prolapse SERENE HOLLOWAY MD Jun 12, 2022 07:04
--- NOTE | 2022-06-12 07:05 | Progress Note-Post Operative ---
Post-Operative Progess Note Surgeon (s)/Medical Practitioners (s) Surgeon SERENE HOLLOWAY MD Medical Practitioners: 2 RNs Pre-Operative Diagnosis Vaginal prolapse And stress urinary incontinence Post-Operative Diagnosis Same Procedure & Operative Findings Date of Procedure 06/12/22 Procedure Performed/Findings Anterior and posterior vaginal repairs With enterocele repair And Dr. Garcia did a pubovaginal sling and cystoscopy Anesthesia Type General Estimated Blood Loss Estimated blood loss (mL): Minimal Specimens/Packing Specimens Removed None SERENE HOLLOWAY MD Jun 12, 2022 07:05
[2022-06-12] MEDS ORDERED: DOCU-143 PO (07:10)
[2022-06-12] MEDS ORDERED: OXYC-199 PO (07:10)
[2022-06-12] MEDS ORDERED: IBUP-1773 PO (07:10)
--- NOTE | 2022-06-12 07:11 | Discharge Inst-Surgical ---
Discharge Inst-Surgical Depart Medication/Instructions New, Converted or Re-Newed RX: Transmitted to Pharmacy Consults/Follow Up Orders & Referrals Follow Up Appt: Call to make follow up appt. for patient in 4 weeks. Activity: Rest for 24 hours, than as tolerated. Diet: As tolerated shower or tub bathe as desired. No driving for 24 hours, no alcoholic beverages for 24 hours, and nothing per vagina (no tampons, douching, or intercoarse) for 4 weeks. Patient to return to the clinic as soon as possible for: Temperature greater than 101F, Severe Pain, Foul discharge from incision or vagina, Excessive Bleeding (more than a period). Activity Activity as Tolerated: No Diet Discharge Diet: No Restrictions SERENE HOLLOWAY MD Jun 12, 2022 07:11
[2022-06-12] MEDS ORDERED: ceFAZolin INJECTION 1,000 MG in NS (IVPB) 50 ML IV ONE (07:15)
[2022-06-12] MEDS ORDERED: ONDANSETRON 4 MG/2 ML (SDV) Z0FRAN IVP PRN ×2 (07:15)
[2022-06-12] MEDS ORDERED: PROMETHAZINE INJ 25 MG/ML (PHENERGAN) AMP IM PRN (07:15)
[2022-06-12] MEDS ORDERED: oxyCODONE/APAP 5/325MG (PERCOCET 5) TABLET PO PRN (07:15)
[2022-06-12] MEDS ORDERED: HYDROmorphone 2 MG/ML VIAL (DILAUDID) IV ONE (07:15)
[2022-06-12] MEDS ORDERED: LACTATED RINGERS 1,000 ML IV PRN (07:15)
[2022-06-12] MEDS ORDERED: MEPERIDINE (DEMEROL) INJ 100 MG/ML IVP PRN (07:15)
[2022-06-12] MEDS ORDERED: BENZOCAINE/MENTHOL (DERMOPLAST) 56 ML CAN TP PRN (07:15)
[2022-06-12] MEDS ORDERED: morphine INJ 10 MG/ML 1ML (SYR OR VIAL) IVP ONE (07:15)
[2022-06-12] MEDS ORDERED: ESTRADIOL VAGINAL CREAM 42.5 GM (ESTRACE) VG ONE ×2 (07:22→08:52)
[2022-06-12] MEDS ORDERED: SCOPOLAMINE 1.5 MG (TRANSDERM-SCOP) PATCH TD ONE (07:30)
[2022-06-12] MEDS ORDERED: FAMOTIDINE 20MG/2ML IV (PEPCID) IVP ONE (07:30)
[2022-06-12] MEDS ORDERED: ONDANSETRON 4 MG/2 ML (SDV) Z0FRAN IVP ONE (07:30)
[2022-06-12 07:37] LABS: BASOPHILS # (AUTO) 0.1 10^3/uL (0.0-0.1); BASOPHILS % (AUTO) 1 % (0-10); EOSINOPHILS # (AUTO) 0.3 10^3/uL (0.0-0.3); EOSINOPHILS % (AUTO) 5 % (0-10); HEMATOCRIT 38 % (35-52); HEMOGLOBIN 12.6 g/dL (11.5-16.0); LYMPHOCYTES # (AUTO) 1.6 10^3/uL (1.0-4.0); LYMPHOCYTES % (AUTO) 27 % (12-44); MEAN CORPUSCULAR HEMOGLOBIN 32 pg (25-34); MEAN CORPUSCULAR HGB CONC 33 g/dL (32-36); MEAN CORPUSCULAR VOLUME 96 fL (80-99); MEAN PLATELET VOLUME 9.5 fL (9.0-12.2); MONOCYTES # (AUTO) 0.6 10^3/uL (0.0-1.0); MONOCYTES % (AUTO) 10 % (0-12); NEUTROPHILS # (AUTO) 3.4 10^3/uL (1.8-7.8); NEUTROPHILS % (AUTO) 58 % (42-75); PLATELET COUNT 266 10^3/uL (130-400); WHITE BLOOD COUNT 5.8 10^3/uL (4.3-11.0)
[2022-06-12] MEDS ORDERED: ONDANSETRON 4 MG/2 ML (SDV) Z0FRAN ONE (07:55)
[2022-06-12] MEDS ORDERED: fentaNYL INJ 100 MCG/2 ML AMP ONE (07:55)
[2022-06-12] MEDS ORDERED: proPOfol 200 MG/20 ML (DIPRIVAN) VIAL IV ONE ×2 (07:55→09:07)
[2022-06-12] MEDS ORDERED: LIDOCAINE PF 2% 5 ML (XYLOCAINE) VIAL ONE (07:55)
[2022-06-12] MEDS ORDERED: PROPOFOL INJECTION 50 ML IV ONE (07:56)
--- NOTE | 2022-06-12 09:12 | Progress Note-Post Operative ---
Post-Operative Progess Note Surgeon (s)/Freight Team Associate (s) Surgeon MICHELLE GRIFFITHS MD Freight Team Associate: SERENE HOLLOWAY MD Pre-Operative Diagnosis BHASKAR Post-Operative Diagnosis SAME Procedure & Operative Findings Date of Procedure 06/12/22 Procedure Performed/Findings PVS AND CYSTOCOPY Anesthesia Type GENERAL Estimated Blood Loss Estimated blood loss (mL): NEGLIGIBLE Specimens/Packing Specimens Removed NONE PackinGM ESTRACE VAG PACK MICHELLE GRIFFITHS MD Jun 12, 2022 09:12
[2022-06-12] MEDS ORDERED: KETOROLAC 30 MG/ML VIAL ONE (09:55)
--- NOTE | 2022-06-12 09:55 | Anesthesia-General Post-Op ---
General Patient Condition Mental Status/LOC: Same as Preop Cardiovascular: Satisfactory Nausea/Vomiting: Absent Respiratory: Satisfactory Pain: Controlled Complications: Absent Post Op Complications Complications None Follow Up Care/Instructions Patient Instructions None needed. Anesthesia/Patient Condition Patient Condition Patient is doing well in PACU, no complaints currently, stable vital signs, no apparent adverse anesthesia problems. No complications reported per nursing. PHIL VALLADARES DO Jun 12, 2022 09:55
[2022-06-12] MEDS: KETOROLAC 15 MG/ML VIAL IV SCH ×3 (09:58→22:05)
[2022-06-12] MEDS ORDERED: morphine INJ 10 MG/ML 1ML (SYR OR VIAL) ONE (10:03)
[2022-06-12] MEDS: D5 LR IV SOLUTION 1,000 ML IV SCH ×2 (11:24→19:54)
--- NOTE | 2022-06-12 13:58 | OPERATIVE REPORT ---
DATE OF SERVICE: 06/12/2022 PREOPERATIVE DIAGNOSIS: Stress urinary incontinence. POSTOPERATIVE DIAGNOSIS: Stress urinary incontinence. OPERATION PERFORMED: Pubovaginal sling and cystoscopy. SURGEON: Michelle Griffiths MD ACADEMIC SUCCESS COORDINATOR: Sloan Gilbert MD ANESTHESIA: General. COMPLICATIONS: None. DESCRIPTION OF PROCEDURE: After Dr. Gilbert performed his part of the surgery that he will dictate, we inserted a Soto catheter draining clear fluid. I went ahead and passed a Desara 1 device and using the described technique, the sling was sitting nicely under the mid urethra with no tension and no twist. Passage of the curved hemostat easily between it and the underlying tissue. I went ahead and removed the Soto catheter and performed cystoscopy to confirm the integrity of the bladder, urethra, and ureteric orifices and no foreign body and presence of the sling under the mid urethra. I left the bladder half filled, removed the cystoscope and performed manual Valsalva maneuver that was negative. I reinserted a Soto catheter draining clear fluid. Dr. Gilbert proceeded with the rest of his surgery that he will dictate. Estimated blood loss for my part negligible. Job ID: [id number] DocumentID: [id number] Dictated Date: 06/12/2022 09:14:23 Clutch Rebuilder Date: 06/12/2022 13:57:00 Dictated By: MICHELLE GRIFFITHS MD [facility]
--- NOTE | 2022-06-12 15:48 | OPERATIVE REPORT ---
DATE OF SERVICE: 06/12/2022 PREOPERATIVE DIAGNOSES: Vaginal prolapse and stress urinary incontinence. POSTOPERATIVE DIAGNOSES: Vaginal prolapse and stress urinary incontinence. PROCEDURES PERFORMED: Anterior and posterior vaginal repairs with enterocele repair and with Dr. Figueroa doing a pubovaginal sling and cystoscopy. DESCRIPTION OF PROCEDURE: With the patient in the supine position, under satisfactory general anesthesia, she was repositioned in the dorsal lithotomy position in the Mahesh stirrups and prepped and draped in the usual fashion for vaginal surgery. Soto catheter was placed in the urinary bladder. A weighted speculum placed in the posterior fornix of the vagina. The anterior vaginal wall was grasped with two Angeline clamps. Incision with Metzenbaum scissors was made in the midline of the vaginal wall that was continued to the apex of the vagina anteriorly approximately 1 to 1.5 cm from the urethral meatus. The vaginal wall was carefully dissected off the bladder back to the pubic ramus bilaterally. The endopelvic fascia and bladder wall were then plicated with 2-0 Vicryl suture, elevating the bladder and lengthening the urethra. At this point, Dr. Figueroa assumed care of the patient and I remained to assist. Dr. Figueroa performed a pubovaginal sling and a cystoscopy. He will dictate his portion of the procedure. Upon completion of Dr. Figueroa's portion of the procedure, I resumed care of the patient, resected the redundant anterior vaginal wall muscularis and mucosa. I then closed the vaginal wall with a running locked suture of 3-0 Vicryl Rapide. Good hemostasis was achieved and good support was evident. Dr. Figueroa left the Soto catheter to dependent drainage. Posterior repair was now effected by placing Angeline clamps on the perineum and the hymenal ring at the 5 o'clock and 7 o'clock position. An inverted triangle of skin was removed from the perineal body and upright triangle from the posterior vaginal floor. The rectovaginal space was then entered sharply and dissected bluntly to the apex of the vagina. The space was explored. There was a small enterocele that was reduced and then plicated with a 2-0 Vicryl pursestring suture. With that done, the rectovaginal space was obliterated with additional sutures of 2-0 Vicryl. The perineal body was restored also with 2-0 Vicryl sutures. Redundant posterior vaginal muscularis mucosa was removed sharply. The vaginal wall was then closed with a running locked suture of 3-0 Vicryl Rapide and closure was continued down past the hymenal ring on to the perineal body and then back up subcuticularly to the hymenal ring, where the suture was tied. Digital rectal exam confirmed no stricture or stenosis of the rectum. There were no sutures into or through the rectal mucosa. The vagina was now filled with Estrace vaginal cream and a pack of Kerlix gauze was placed. The Soto catheter again was left to dependent drainage. Sponge and needle counts were correct on completion of the procedure. Blood loss was minimal for the procedure. The patient was uneventfully awakened from her general anesthesia and transferred to the recovery room in a stable condition. Job ID: [id number] DocumentID: [id number] Dictated Date: 06/12/2022 09:40:47 Circuit Designer Date: 06/12/2022 15:47:00 Dictated By: SERENE HOLLOWAY MD
[2022-06-12] MEDS ORDERED: ACETAMINOPHEN 500 MG TAB (TYLENOL) PO ONE (19:45)
[2022-06-12] MEDS ORDERED: ACETAMINOPHEN 500 MG TAB (TYLENOL) ONE (19:49)
[2022-06-13] MEDS: D5 LR IV SOLUTION 1,000 ML IV SCH (00:06)
[2022-06-13 00:15] VITALS: BP 97/54
[2022-06-13] MEDS: KETOROLAC 15 MG/ML VIAL IV SCH (03:35)
[2022-06-13 03:40] VITALS: BP 110/57
[2022-06-13] MEDS ORDERED: IBUPROFEN 600 MG (MOTRIN) TAB PO SCH (07:15)
[2022-06-13 08:15] VITALS: BP 114/55
[2022-06-13] MEDS ORDERED: DOCUSATE SODIUM 100 MG (COLACE) CAP PO SCH (09:00)
--- NOTE | 2022-06-13 09:53 | Progress Note ---
Standard Progress Note Progress Notes/Assess & Plan Date Seen by a Provider: Jun 13, 2022 Time Seen by a Provider: 09:52 Progress/Assessment & Plan This patient is without complaint. She is ambulating, voiding, tolerating oral intake well and has good pain control. Patient denies chest pain, denies shortness of breath, denies nausea vomiting, and denies headache. Vital Signs Date Time Temp Pulse Resp B/P (MAP) Pulse Ox O2 Delivery O2 Flow Rate FiO2 06/13/22 09:00 Room Air 06/13/22 08:15 37.0 79 14 114/55 (74) 98 Room Air 06/13/22 03:40 37.2 63 18 110/57 (74) 97 Room Air 06/13/22 00:15 36.4 73 18 97/54 (68) 99 Room Air 06/12/22 19:40 36.8 89 18 96/54 (68) 100 Room Air 06/12/22 16:00 36.9 92 18 108/52 (70) 96 Room Air 06/12/22 14:24 36.4 88 18 110/59 97 Room Air 06/12/22 13:28 36.6 85 18 115/56 97 Room Air 06/12/22 12:29 36.2 80 18 116/58 100 Room Air 06/12/22 12:00 36.1 64 18 117/56 (76) 100 Room Air 2.00 2.00 06/12/22 12:00 36.1 75 18 117/56 100 Room Air 06/12/22 11:04 Room Air 06/12/22 10:58 36.1 75 18 109/57 98 Room Air 06/12/22 10:44 36.1 64 18 109/57 (74) 98 Room Air 06/12/22 10:28 36.2 75 20 96/59 100 Room Air 2.00 06/12/22 10:24 Room Air 06/12/22 10:20 36.2 20 96/59 (71) 100 Room Air 06/12/22 10:10 14 101/54 (70) 97 Room Air 06/12/22 10:00 14 113/62 (79) 100 Room Air 06/12/22 10:00 OxyMask 2.00 I & O 06/13/22 07:00 Intake Total 3665 ml Output Total 815 ml Balance 2850 ml Vital signs are stable. Patient is afebrile. The abdomen is benign Extremities show no clubbing cyanosis. There is no Homans' sign. Pelvic exam was deferred Assessment and plan Postoperative day #1 doing well. Plan is for routine convalescent care with discharge home todayWhen patient is ambulating, voiding, tolerating oral intake and Pain is controlled with oral medication Final Diagnosis Vaginal prolapse SERENE HOLLOWAY MD Jun 13, 2022 09:53
[2022-06-13] MEDS ORDERED: CIPR-226 PO (10:48)
== END 2022-06-13 11:10 | disposition home or self-care (01) ==
LOC: SDC 06:26 → WS 10:41 → SDC 06-13 11:10
PROVIDERS: ATTEND Obstetrics & Gynecology
DX: N39.3 Stress incontinence (female) (male) (principal); N99.3 Prolapse of vaginal vault after hysterectomy
CPT/HCPCS: 57265; 57288; 85025; 87081; C1771; 36415

== ENCOUNTER → 2022-08-20 | Outpatient (CLI) | payer MEDICARE ==
[~2022-08-20] MED LIST changes: +CIPR-226 PO; +DOCU-143 PO; +IBUP-1773 PO; +OXYC-199 PO
--- NOTE | 2022-08-20 15:20 | Diagnostic Imaging Report ---
INDICATION: Routine screening. Comparison is made with prior mammogram from 06/27/2021 and 06/10/2020. 2-D and 3-D bilateral screening mammography was performed with CAD. Both breasts are heterogeneously dense, limiting the sensitivity of mammography. The parenchymal pattern is stable. No mass or malignant-appearing microcalcifications are seen. Axillae are unremarkable. IMPRESSION: No mammographic features suspicious for malignancy are identified. ACR BI-RADS Category 1: Negative. Result letter will be mailed to the patient. Note: At least 10% of breast cancer is not imaged by mammography. BI-RADS Category 1 Dictated by: Dictated on workstation # [id number]
== END ==
LOC: RAD 11:00
PROVIDERS: ATTEND Nurse Practitioner Family
DX: Z12.31 Encounter for screening mammogram for malignant neoplasm of breast (principal)
CPT/HCPCS: 77063; 77067

== ENCOUNTER 2022-11-23 18:24 | Emergency (ER) | payer MEDICARE ==
[~2022-11-23] VITALS: Ht 152 cm; Wt 50.0 kg
[2022-11-23 18:45] VITALS: BP 138/80
[2022-11-23 19:24] LABS: BILIRUBIN,URINE NEGATIVE (NEGATIVE); CLARITY,URINE CLEAR; COLOR,URINE YELLOW; GLUCOSE, URINE (UA) NEGATIVE (NEGATIVE); KETONES,URINE NEGATIVE (NEGATIVE); LEUKOCYTE ESTERASE ,URINE 1+ (NEGATIVE); NITRITE,URINE NEGATIVE (NEGATIVE); PROTEIN,URINE NEGATIVE (NEGATIVE)
[2022-11-23] MEDS ORDERED: RX-TRIMETH/SULFA. 160-800 MG (BACTRIM DS) TAB PPK#2 PO STA (19:25)
[2022-11-23] MEDS ORDERED: SULF1TAB38 PO (19:28)
--- NOTE | 2022-11-23 19:28 | ED GU-Female ---
General Chief Complaint: - Reproductive Stated Complaint: VAG SWELLING Nursing Triage Note: PT AMB TO TRIAGE, PT STATES FELT STING IN L VAGINAL AREA AND NOTICED ALOT OF SWELLING ON L SIDE CONT TO HAVE STINGING SENSATION. RATES DISCOMFOR 08/04 Source: patient History of Present Illness Date Seen by Provider: November 23, 2022 Time Seen by Provider: 19:08 Initial Comments PT ARRIVES VIA POV FROM HOME PT NOTICED VERY SLIGHT STINGING SENSATION TO LEFT LABIA THIS MORNING THIS EVENING AROUND 1900, SHE WENT TO THE BATHROOM AND NOTICED SWELLING TO HER LEFT LABIA NO SIGNIFICANT PAIN, JUST VERY SLIGHT STINGING SENSATION NO DIFFICULTY URINATING NO DRAINAGE OR VAGINAL DISCHARGE OR BLEEDING. NO FEVER NO HISTORY OF SIMILAR PT IS NOT DIABETIC SHE HAD A MOLE REMOVED FROM HER LEFT ARM LAST WEEK AT DR. WILLIAMSON'S OFFICE, AND SHE WENT BACK TODAY TO HAVE SUTURES REMOVED, BUT DID NOT MENTION THIS PROBLEM AT THE TIME SHE DID TAKE SOME LEFT OVER ANTIBIOTICS A MONTH OR SO AGO FOR WHAT SHE THOUGHT MIGHT BE A UTI--THOSE SYMPTOMS WENT AWAY AFTER A COUPLE OF DAYS AND THOSE SYMPTOMS WENT AWAY. PCP: PAO WILLIAMSON AT DR. WILLIAMSON'S OFFICE. Allergies and Home Medications Allergies Coded Allergies: nickel (Verified Allergy, Unknown, RASH, 06/09/22) Patient Home Medication List Ca Carbonate/Vitamin D3/Vit K (Calcium + D Soft Chewable Tab) 1 Each Tab.chew, 1 TAB PO DAILY, (Reported) Entered as Reported by: SAMY SULLIVAN on 03/30/14 0932 Ciprofloxacin HCl (Cipro) 250 Mg Tablet, 250 MG PO BID Prescribed by: HAILEE DE LOS SANTOS on 06/13/22 1048 Docusate Sodium (Colace) 100 Mg Capsule, 100 MG PO BID Prescribed by: SERENE OLMSTEAD on 06/12/22 0710 Estradiol (Estrace Vaginal Cream) 42.5 Gm Cream.appl, 1 GM VG 2 times per week, (Reported) Entered as Reported by: ARACELIS CLEMENTS on 02/23/13 1504 Ibuprofen (Ibuprofen) 600 Mg Tablet, 600 MG PO Q6H Prescribed by: SERENE OLMSTEAD on 06/12/22 0710 Levothyroxine Sodium (Levothyroxine Sodium) 75 Mcg Tablet, 75 MCG PO UD, (Reported) Entered as Reported by: SUKHWINDER WHELAN on 06/09/22 1111 Levothyroxine Sodium (Levothyroxine) 75 Mcg Capsule, 37.5 MCG PO UD, (Reported) Entered as Reported by: SUKHWINDER WHELAN on 06/09/22 1111 Losartan Potassium (Losartan Potassium) 25 Mg Tablet, 25 MG PO DAILY, (Reported) Entered as Reported by: ARACELIS CLEMENTS on 02/23/13 1504 Ondansetron Hcl (Zofran Oral Dissolve) 4 Mg Tab, 4 MG SL Q4H PRN for NAUSEA/VOMITING Prescribed by: FRANNY JONES on 05/05/14 1132 Oxycodone HCl/Acetaminophen (Percocet 5-325 mg Tablet) 5 Mg-325 Mg Tablet, 1 TAB PO Q4H PRN for PAIN-MODERATE Prescribed by: SERENE OLMSTEAD on 06/12/22 0710 Rosuvastatin Calcium (Rosuvastatin Calcium) 10 Mg Tablet, PO UD, (Reported) Entered as Reported by: SUKHWINDER WHELAN on 06/09/22 1111 Sulfamethoxazole/Trimethoprim (Bactrim Ds Tablet) 1 Each Tablet, 1 EACH PO BID Prescribed by: JESSE LEYVA on 11/23/22 1928 [Fish Oil] Unknown Strength , Unknown Dose, (Reported) Entered as Reported by: SUKHWINDER WHELAN on 06/09/22 1111 [Glucosamine] Unknown Strength , Unknown Dose, (Reported) Entered as Reported by: SUKHWINDER WHELAN on 06/09/22 1111 [Vitamin B12] Unknown Strength , Unknown Dose, (Reported) Entered as Reported by: SUKHWINDER WHELAN on 06/09/22 1111 [Vitamin D3] Unknown Strength , Unknown Dose, (Reported) Entered as Reported by: SUKHWINDER WHELAN on 06/09/22 1111 Review of Systems Review of Systems Constitutional: no symptoms reported Gastrointestinal: no symptoms reported Genitourinary: see HPI Musculoskeletal: no symptoms reported Skin: see HPI Past Efijhlk-Dytcgw-Swiqsw Hx Patient Social History Tobacco Use?: No Substance use?: No Alcohol Use?: No Pt feels they are or have been: No Immunizations Up To Date Tetanus Booster (TDap): Less than 5yrs First/Initial COVID19 Vaccinat: 09/2020 Second COVID19 Vaccination Lauro: 10/2020 Third COVID19 Vaccination Date: 09/2020 Seasonal Allergies Seasonal Allergies: Yes Past Medical History Surgery/Hospitalization HX: HTN, ESTRACE CREAM, THYROID. 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 0.0oz. [id number]; 21.00 BMI Method:Stated General Appearance: WD/WN, no apparent distress, other (SMILING, VERY PLEASANT, DOES NOT APPEAR TO BE IN ANY DISCOMFORT OR DISTRESS, AND WALKS AND MOVES WITHOUT DIFFICULTY) Pelvic: other (LEFT LABIA WITH MODERATE DIFFUSE SWELLING AND ERYTHEMA AND MILD TENDERNESS. NO FLUCTUANCE. NO POINTING. NO DRAINAGE. ) Progress/Results/Core Measures Suspected Sepsis SIRS Temperature: Pulse: 81 Respiratory Rate: 18 Blood Pressure 138 /80 Mean: 99 Results/Orders Lab Results Laboratory Tests Test 11/23/22 19:10 Range/Units My Orders Orders - JESSE LEYVA DO Ua Culture If Indicated (11/23/22 19:08) Rx-Trimeth/Sulfameth Ds Tab (Rx-Bactrim/ (11/23/22 19:25) Vital Signs/I&O 11/23/22 18:45 Temp 36.4 Pulse 81 Resp 18 B/P (MAP) 138/80 (99) Pulse Ox 96 Capillary Refill : Less Than 3 Seconds Blood Pressure Mean: 99 Progress Note : Progress Note DISCUSSED ANTICIPATED COURSE, SYMPTOMATIC TREATMENT, MEDICATIONS, NEED FOR FOLLOW UP AND RETURN PRECAUTIONS ADVISED THAT THE AREA MAY "MATURE" AND MAY NEED TO BE I&D'D AT THAT POINT, IF THAT OCCURS, BUT THERE IS NOT ANY EVIDENCE OF A DEFINITE ABSCESS AT THIS TIME. Departure Impression Primary Impression: cellulitis left labia Additional Impression: Urinary tract infection Disposition: 01 HOME, SELF-CARE Condition: Stable Departure-Patient Inst. Decision time for Depature: 19:25 Referrals: CHINYERE WILLIAMSON DO (PCP/Family) Primary Care Physician Patient Instructions: Cellulitis (Skin Infection), Adult (DC) Add. Discharge Instructions: MOIST HEAT TO AREA AT 20 MINUTE INTERVALS IBUPROFEN AND TYLENOL NEEDED FOR PAIN DO NOT SQUEEZE OR POKE THE AREA--IF THE AREA OPENS AND DRAINS ON IT'S OWN, YOU MAY WEAR A PAD OR PUT A DRESSING OVER THE AREA FOLLOW UP WITH DR. WILLIAMSON'S OFFICE IN 2-3 DAYS FOR FURTHER CARE--CALL IN THE MORNING TO SCHEDULE AN APPOINTMENT All discharge instructions reviewed with patient and/or family. Voiced understanding. Scripts Sulfamethoxazole/Trimethoprim (Bactrim Ds Tablet) 1 Each Tablet 1 EACH PO BID, #20 TAB Prov: JESSE LEYVA DO 11/23/22 JESSE LEYVA DO November 23, 2022 19:28
[2022-11-23 19:35] LABS: BACTERIA,URINE FEW /HPF; RBC,URINE RARE /HPF; SQUAMOUS EPITHELIAL CELL,UR 0-2 /HPF
== END 2022-11-23 19:40 | disposition home or self-care (01) ==
LOC: EDUNIT# 18:24 → ER 18:27
DX: N76.2 Acute vulvitis (principal); N39.0 Urinary tract infection, site not specified; Z88.1 Allergy status to other antibiotic agents
CPT/HCPCS: 81000; 87077; 87088; 87186; 99282